=== PATIENT | female | born 1960 | race Two or more races ===

== ENCOUNTER 2024-08-14 14:47 | Emergency (ER) | payer MEDICAID, SELFPAY ==
[2024-08-14 14:54] VITALS: BP 143/81; PULSE 85; RESP 18; TEMP 36.8; O2SAT 96
--- NOTE | 2024-08-14 15:08 | PD.EDEAR ---
ED Ear RME/HPI General Chief complaint: Ear Stated complaint: FLUID RIGHT EAR X 3 WKS; SEEN PRIMARY X 2 Time Seen by Provider: 08/14/24 14:56 Source: patient Arrival date/time: 08/14/24 14:47 Mode of arrival: ambulatory Limitations: no limitations RME / HPI RME / HPI Narrative: 64-year-old female presents to ED with a complaint of right ear pain and discomfort x 3 weeks MD Complaint: ear pain and decreased hearing Location: right ear Duration: constant Severity: moderate Related Data Home Medications ?Medication ?Instructions ?Recorded ?Confirmed lisinopril 30 mg tablet 30 mg PO QDAY 10/07/22 10/12/22 loratadine 10 mg tablet 10 mg PO QDAY 10/07/22 10/12/22 Previous Rx's ?Medication ?Instructions ?Recorded docusate sodium 100 mg capsule 100 mg PO BID #40 caps 10/08/22 (Colace) hydrocodone 5 mg-acetaminophen 325 1 tab PO Q6H PRN pain (scale score 10/08/22 mg tablet 7-10) #20 tabs ibuprofen 600 mg tablet 600 mg PO Q8H PRN pain (scale 10/08/22 score 4-6) #15 tabs Allergies Allergy/AdvReac Type Severity Reaction Status Date / Time No Known Allergies Allergy Verified 08/14/24 14:50 Review of Systems Constitutional Constitutional: Reports system reviewed and no additional complaints, except as documented Eyes Eyes: Reports system reviewed and no additional complaints, except as documented, Denies dry eyes, Denies exophthalmos and Reports floaters Cardiovascular Cardiovascular: Denies chest pain with activity and Denies claudication ED Exam Narrative Physical exam: Right EAM positive for cerumen obstructs the TM. There is no apparent infectious process taking place. General Limitations: Present no limitations General appearance: Present alert and in no apparent distress Head Head exam: Present atraumatic Eye Eye exam: Present normal appearance and EOMI ENT ENT exam: Present normal exam, normal oropharynx and mucous membranes moist Neck Neck exam: Present normal inspection, full ROM and trachea midline Chest Chest inspection: Present normal inspection and symmetric chest wall rise Extremities Exam Extremities exam: Present normal inspection and full ROM Back Exam Back exam: Present normal inspection and full ROM Neurological Exam Neurological exam: Present alert and oriented X3 Psychiatric Psychiatric exam: Present normal affect and normal mood Skin Skin exam: Present warm, dry, intact and normal color Course Course Course Narrative: Patient will have her ears irrigated and she will be discharged in no apparent distress. Quality Measures none Orders Category Date Time Status ED Ear Irrigation X1 Care 08/14/24 15:01 Active Awaiting Vital Signs Vital signs: Vital Signs Temperature 98.2 F 08/14/24 14:54 Pulse Rate 85 08/14/24 14:54 Respiratory Rate 18 08/14/24 14:54 Blood Pressure 143/81 H 08/14/24 14:54 Pulse Oximetry (%) 96 08/14/24 14:54 Oxygen Delivery Method Room Air 08/14/24 14:54 Pulse ox room air is 96% Ear MDM Narrative MDM Narrative:: Patient to have her right ear irrigated and she will be discharged home in no apparent distress. She has to follow-up primary care physician in 1 week. Patient data External records reviewed:: None and Other (specify) Clinical information provided by:: none Social determinants that could affect healthcare access:: none Patient has the following chronic illnesses:: NA How is presenting disease/condition affected by chronic disease/condition?: no chronic disease Evaluation data The following diagnostics were reviewed and interpreted by me:: lab results (No labs required) Lab and/or radiology exams considered but not ordered:: None ordered Interpretation Summary: None ordered Medications / Prescriptions Medications or Prescriptions considered but not ordered:: None ordered Medication administrations:: None ordered Consultations Consultation(s) initiated? (list below): No Diagnosis Ear Differential Diagnosis: foreign body in ear and cerumen impaction Most likely diagnosis given after review of the tests above:: No labs required Admission Indicated Admission indicated?: not indicated Admission Request Was there a request for admission?: No Disposition Plan Disposition Plan: Discharge Discharge Attestation Discharge Attestation: The patient and all family members were given an opportunity to ask questions and understood the discharge instructions. Discharge instructions specifically effects, indications for sooner follow up or return to the emergency department, and the expected course of current diagnosis. Patient condition: Stable Medical Decision Making MDM Narrative MDM Narrative: Reevaluation of the right ear demonstrates an ear canal that has been lavaged and there is no apparent cerumen present. TM appears a little irritated as well as the EAM. Patient tells me she can hear just fine and I will discharge her in no apparent distress. Discharge Plan Plan Patient Disposition: HOME (Self Care) Discharge Disposition comment: Discharge in no apparent distress Patient condition on transfer: Stable Prescriptions/Referrals Prescriptions/Med Rec: No Action lisinopril 30 mg Tablet 30 mg PO QDAY loratadine 10 mg Tablet 10 mg PO QDAY docusate sodium [Colace] 100 mg capsule 100 mg PO BID Qty: 40 0RF hydrocodone-acetaminophen 5-325 mg tablet 1 tab PO Q6H MDD 4 PRN (Reason: pain (scale score 7-10)) Qty: 20 0RF ibuprofen 600 mg tablet 600 mg PO Q8H PRN (Reason: pain (scale score 4-6)) Qty: 15 0RF Problem List Clinical Impression: Cerumen impaction Patient/Caregiver Discharge Instructions Discharge Activity: activity as tolerated Print Language: Estonian Stand Alone Forms: Chery Award Info., Patient Portal Info Letter PA/SAFETY AND OCCUPATIONAL HEALTH MANAGER Supervising Physician PA/SAFETY AND OCCUPATIONAL HEALTH MANAGER Supervising Physician: MANAV
== END 2024-08-14 20:38 | disposition home or self-care (01) ==
PROVIDERS: Emergency Provider Emergency Medicine
DX: H61.21 Impacted cerumen, right ear (principal)
CPT/HCPCS: 99283

== ENCOUNTER → 2024-11-23 | Outpatient (CLI) | payer MEDICAID, SELFPAY ==
--- NOTE | 2024-11-23 09:30 | XR_ITS ---
Examination: Screening digital mammography, bilateral Computer aided detection 3-D breast Tomosynthesis, bilateral Date and time of exam: November 23, 2024 0914 hours, compared to mammograms dating to May 19, 2013 Indication: Screening Technique: Nonmagnified MLO, CC views of the breasts to been obtained, reconstructed from 3-D Tomosynthesis images. R2 computer aided detection program utilized for evaluation of suspicious masses and/or abnormal calcifications. 3-D Tomosynthesis images obtained. Findings: Scattered areas of fibroglandular density. Benign calcifications. No interval suspicious masses Impression: BI-RADS category II: Benign Findings. Recommend 1 year follow-up mammogram.
== END | disposition home or self-care (01) ==
PROVIDERS: PCP Family Medicine; Referring Provider Family Medicine; Visit Provider Family Medicine
DX: Z12.31 Encounter for screening mammogram for malignant neoplasm of breast (principal); R92.323 Mammographic fibroglandular density, bilateral breasts; R92.1 Mammographic calcification found on diagnostic imaging of breast
CPT/HCPCS: 77063; 77067